=== PATIENT | male | born 1975 | race Caucasian/White ===

== ENCOUNTER 2023-05-20 19:52 | Inpatient (IN) | payer OTHER ==
[~2023-05-20] VITALS: Ht 182.9 cm; Wt 138.4 kg
[~2023-05-20 19:52] MED LIST: ALBU90OI INH; CLAR500 PO; CRUTCH3 USE; CYCL10 PO; GUAPHELA PO; HYDACE5 PO; IBUP800 PO; NAPR500 PO; OMEP20ER PO; OXYACE5T PO; PROCODE120 PO; RXERYTOPTH OP; TRAM50 PO
[2023-05-20 20:53] LABS: BASOPHILS ABSOLUTE AUTO 0.07 K/mm3 (0.00-0.23); BASOPHILS PERCENT AUTO 0 % (0-2); EOSINOPHILS ABSOLUTE AUTO 0.06 K/mm3 (0.00-0.68); EOSINOPHILS PERCENT AUTO 0 % (0-6); Hematocrit 28.2 % (37.0-53.0); IMMATURE GRAN PERCENT AUTO 1 % (0-1); LYMPHOCYTES ABSOLUTE AUTO 1.34 K/mm3 (0.84-5.20); LYMPHOCYTES PERCENT AUTO 7 % (21-46); MONOCYTES ABSOLUTE AUTO 2.26 K/mm3 (0.16-1.47); MONOCYTES PERCENT AUTO 11 % (4-13); Mean Corpuscular HGB 24.8 pg (26.0-34.0); Mean Corpuscular HGB Conc 31.9 g/dL (31.5-36.5); Mean Corpuscular Volume 78 fL (80-100); Mean Platelet Volume 9.4 fL (9.1-12.4); NEUTROPHILS ABSOLUTE AUTO 16.56 K/mm3 (1.96-9.15); NEUTROPHILS PERCENT AUTO 81 % (41-73); Platelet Count 441 K/mm3 (150-400); RDW Coefficient Variation 14.9 % (11.7-14.2); RDW Standard Deviation 42.4 fL (35.1-46.3); Red Blood Cell Count 3.63 M/mm3 (4.30-5.90); White Blood Cell Count 20.49 K/mm3 (4.00-11.30)
[2023-05-20 21:15] LABS: Albumin, Blood 1.9 g/dL (3.4-5.0); Albumin/Globulin Ratio 0.4 (0.8-1.8); Bilirubin, Total 0.5 mg/dL (0.1-1.0); Bun/Creatinine Ratio 14.6 (12.0-20.0); Calcium, Blood 8.4 mg/dL (8.5-10.1); Creatinine, Blood 1.51 mg/dL (0.60-1.20); Globulin, Blood 5.4 g/dL (2.2-4.0); Potassium, Blood 3.4 mmol/L (3.5-5.5); Total Protein, Blood 7.3 g/dL (6.4-8.2)
[2023-05-21] VITALS (9 sets, daily range): BP systolic 144–203; BP diastolic 79–117
[2023-05-21] MEDS ORDERED: NAPR500EC PO ×2 (00:57)
[2023-05-21 02:13] LABS: Source, Urine Clean Catch
[2023-05-21 02:17] LABS: Bilirubin, Urine Neg (Neg); Blood, Urine Neg (Neg); Glucose Qualitative, Urine Neg (Neg); Ketones, Urine Neg (Neg); Leukocyte Esterase, Urine Neg (Neg); Nitrite, Urine Neg (Neg); Protein, Urine 2+ (Neg); Urobilinogen, Urine 2+ (Normal)
[2023-05-21 02:35] LABS: Appearance, Urine Clear (Clear); Color, Urine Yellow (P-Yellow)
[2023-05-21 02:36] LABS: Amorphous Light (0-Heavy); Bacteria Rare /hpf; Red Blood Cells, Urine Not Seen /hpf (0-2); Squamous Epithelial Cells Few /hpf (Few); White Blood Cells, Urine 0-2 /hpf (0-5)
[2023-05-21 05:07] LABS: U Amphetamine Screen DETECTED; U Barbituate Screen Not Detected; U Methamphetamine Screen DETECTED
[2023-05-21 05:08] LABS: U Benzodiazapine Screen Not Detected; U Buprenorphine Screen Not Detected; U Cannabinoids Screen DETECTED; U Cocaine Screen Not Detected; U Methadone Screen Not Detected; U Opiates Screen Not Detected; U Oxycodone Screen Not Detected; U Phencyclidine Screen Not Detected; U Propoxyphene Screen Not Detected
--- NOTE | 2023-05-21 05:48 | NUR ---
T/F AND SUMMARY: REPORT RECIEVED FROM MAGGIE, RENAL NURSE AND PT T/F VIA GURNEY TO ROOM 363 AT 0030 W/DAUGHTER AT BEDSIDE. HE'S A/OX4, SPECIFIES NEEDS AND IS PLEASANT AND COOPERATIVE W/CARE. PT ORIENTED TO ROOM AND CALL SYSTEM AND IS AWARE OF LIMITATIONS. HE HAS GENERAL ANASARCA W/LIMITED ROM AND PAIN TO HANDS/BLE'S R/T EDEMA. POSSIBLE CELLULITIS NOTED TO RLE W/CALF, ROBERTSON AND ANKLE APPEARING SWOLLEN, RED, WARM AND TIGHT. EDEMA TO RLE > LLE BUT VENOUS DUPLEX WAS (-) FOR DVT. HE ALSO REPORTS R.SHOULDER PAIN W/DECREASED ROM. PT IS INDEPENDENT AT BASELINE BUT [place] [facility] [place] RES[place] OF PAIN AND MOBILITY ISSUES. URINAL USED AD CODIE W/UA OBTAINED AND SENT. URINE WAS CONCENTRATED AND ORANGE/PINK TINGED AND WAS (+) FOR PROTEIN/UROBILINOGEN BUT NO CX INDICATED. U.TOX (+) FOR METH/AMPHETAMINES AND CANNABINOIDS. HE HAD X1 BM THIS SHIFT THAT APPEARED MUCOUSY AND CREAM COLORED. MD NOTIFEID, NO NEW ORDERS. HE C/O GEN PAIN 05/16 W/FENTANYL IV PRN RX'D AND RECIEVED FOR /10 IMPROVEMENT. PT APPEARED ANXIOUS AND TACHYPNEA MOST OF NOCTE, RX'D ATIVAN 0.5MG PO X1 FOR MILD RELIEF. RR REMAINED ELEVATED DESPITE NO OTHER S/S RESP DISTRESS AND SPO2 >98%. CPAP COMMENCED BUT PT COULDN'T TOLERATE IT. HE'S ALSO BEEN S.TACH ON TELE SINCE ER W/HR SUSTAINING 120'S BPM. NOTIFIED AND NO NEW ORDERS RECIEVED. NS IS INFUSING AT 75 ML/HR, ALBUMIN AND IV CEFTRIAXONE WERE COMPLETED AND 40 MEQ PO KCL GIVEN FOR K+ 3.4. AM LABS PENDING AND ECHO PLANNED THIS AM. NO ACUTE CHANGES. WCTM AND REPORT TO DAY RN.
[2023-05-21 05:52] LABS: BASOPHILS ABSOLUTE AUTO 0.07 K/mm3 (0.00-0.23); BASOPHILS PERCENT AUTO 0 % (0-2); EOSINOPHILS ABSOLUTE AUTO 0.05 K/mm3 (0.00-0.68); EOSINOPHILS PERCENT AUTO 0 % (0-6); Hematocrit 25.9 % (37.0-53.0); Hemoglobin 8.1 g/dL (13.5-17.5); IMMATURE GRAN PERCENT AUTO 1 % (0-1); LYMPHOCYTES PERCENT AUTO 6 % (21-46); MONOCYTES ABSOLUTE AUTO 1.83 K/mm3 (0.16-1.47); MONOCYTES PERCENT AUTO 9 % (4-13); Mean Corpuscular HGB 24.4 pg (26.0-34.0); Mean Corpuscular HGB Conc 31.3 g/dL (31.5-36.5); Mean Corpuscular Volume 78 fL (80-100); Mean Platelet Volume 9.6 fL (9.1-12.4); NEUTROPHILS ABSOLUTE AUTO 16.34 K/mm3 (1.96-9.15); NEUTROPHILS PERCENT AUTO 83 % (41-73); Platelet Count 396 K/mm3 (150-400); RDW Coefficient Variation 15.3 % (11.7-14.2); RDW Standard Deviation 43.5 fL (35.1-46.3); Red Blood Cell Count 3.32 M/mm3 (4.30-5.90); White Blood Cell Count 19.69 K/mm3 (4.00-11.30)
[2023-05-21 06:32] LABS: Albumin/Globulin Ratio 0.4 (0.8-1.8); Bilirubin, Total 0.5 mg/dL (0.1-1.0); Bun/Creatinine Ratio 16.7 (12.0-20.0); Creatinine, Blood 1.2 mg/dL (0.60-1.20); Globulin, Blood 4.6 g/dL (2.2-4.0); Potassium, Blood 3.4 mmol/L (3.5-5.5); Total Protein, Blood 6.6 g/dL (6.4-8.2)
--- NOTE | 2023-05-21 19:34 | NUR ---
SHIFT SUMMARY PT A&OX4 AND COOPERATIVE OF CARE. PT ON TELE AND HR REMAINS TACHY IN THE 120'S T/O DAY. BP ELEVATED AND DR CHRISTIANSON NOTIFIED. PRN MEDICATIONS ORDERED. HYDROLOZINE GIVEN IN AFTERNOON WITH GOOD EFFECT BUT BP WAS AGAIN ELEVATED IN EVENING. MEDICATED PER EMAR. PT VERBALIZED FEELING ANXIOUS AND HAVING PANIC ATTACKS SINCE BEING IN THE HOSPITAL. ATIVAN GIVEN AND THIS NURSE SAT WITH PT FOR A TIME. PT ALSO C/O PAIN AND MEDICATED WITH GOOD EFFECT. PT VERY SOMNOLENT IN AFTERNOON AND DIFFICULT TO WAKE FOR EVENING MEDS. ONCE AWAKE PT WAS ABLE TO SIT UP AND EAT DINNER. PT IS GETTING DIURESED AND VERBALIZED CONCERN THAT HE WAS NOT ABLE TO REST D/T FREQUENT URINATION. CONDOM CATH PLACED. PT APPEARS TO HOLD BREATH WHILE SLEEPING AND DESATS TO THE LOW 80'S. OXYGEN COMES BACK UP QUICK WHEN PT TAKES BREATH. PT ENCOURAGED TO TRY CPAP BUT PT DECLINED. PT WILLING TO USE NC WHILE SLEEPING. REPORT GIVEN TO LITERACY CONSULTANT NURSE. BED IN LOWEST POSITION AND CALL LIGHT IN REACH.
[2023-05-22 04:25] VITALS: BP 150/91
[2023-05-22 05:09] LABS: BASOPHILS ABSOLUTE AUTO 0.07 K/mm3 (0.00-0.23); BASOPHILS PERCENT AUTO 0 % (0-2); EOSINOPHILS ABSOLUTE AUTO 0.32 K/mm3 (0.00-0.68); EOSINOPHILS PERCENT AUTO 2 % (0-6); Hematocrit 27.9 % (37.0-53.0); Hemoglobin 8.9 g/dL (13.5-17.5); IMMATURE GRAN ABSOLUTE AUTO 0.19 K/mm3 (0.00-0.10); IMMATURE GRAN PERCENT AUTO 1 % (0-1); LYMPHOCYTES ABSOLUTE AUTO 1.01 K/mm3 (0.84-5.20); LYMPHOCYTES PERCENT AUTO 5 % (21-46); MONOCYTES ABSOLUTE AUTO 1.54 K/mm3 (0.16-1.47); MONOCYTES PERCENT AUTO 8 % (4-13); Mean Corpuscular HGB 24.7 pg (26.0-34.0); Mean Corpuscular HGB Conc 31.9 g/dL (31.5-36.5); Mean Corpuscular Volume 77 fL (80-100); Mean Platelet Volume 10.1 fL (9.1-12.4); NEUTROPHILS ABSOLUTE AUTO 16.53 K/mm3 (1.96-9.15); NEUTROPHILS PERCENT AUTO 84 % (41-73); Platelet Count 436 K/mm3 (150-400); RDW Coefficient Variation 15.4 % (11.7-14.2); RDW Standard Deviation 42.8 fL (35.1-46.3); Red Blood Cell Count 3.61 M/mm3 (4.30-5.90); White Blood Cell Count 19.66 K/mm3 (4.00-11.30)
--- NOTE | 2023-05-22 05:52 | NUR ---
SHIFT SUMMARY PRN HYDRALAZINE GIVEN X1 AT BEGINNING OF SHIFT FOR ELEVATED SBP, WITH POSITIVE RESULTS. PT DID NOT REQUIRE ANY ADDITIONAL PRNS FOR BP THE REMAINDER OF SHIFT. PRN OXYCODONE GIVEN X1 FOR PAIN WITH POSITIVE EFFECT. Q1H FIRE SAFETY CHECKS COMPLETED WITH NO IGNITION SOURCES FOUND.
[2023-05-22 06:11] LABS: Albumin, Blood 1.8 g/dL (3.4-5.0); Albumin/Globulin Ratio 0.4 (0.8-1.8); Bilirubin, Total 0.4 mg/dL (0.1-1.0); Bun/Creatinine Ratio 17.5 (12.0-20.0); Calcium, Blood 8.1 mg/dL (8.5-10.1); Creatinine, Blood 1.03 mg/dL (0.60-1.20); Globulin, Blood 5.1 g/dL (2.2-4.0); Magnesium, Blood 1.7 mg/dL (1.6-2.4); Percent Saturation 6.9 % (20.0-50.0); Potassium, Blood 3.5 mmol/L (3.5-5.5); Total Protein, Blood 6.9 g/dL (6.4-8.2)
[2023-05-22 07:55] VITALS: BP 164/91
[2023-05-22 15:48] VITALS: BP 164/93
--- NOTE | 2023-05-22 17:36 | NUR ---
Pt resting in bed upon arrival. Offered [facility] supportive visit. Brief discussion regarding news received regarding potential cancer. Pt tearful and reports trying to process information. Pt reports not but has 2 daughter and a son. Kept visit brief as Pt is also painful. He reports 9/10 pain in his right shoulder when he moves it. Pt agreeable for this PC RN to F/U tomorrow. Spoke with Primary RN Faustina and reported Pt's pain. Palliative Care will remain available
--- NOTE | 2023-05-22 18:24 | NUR ---
SHIFT SUMMARY PT UP IN RECLINER DURING THE DAY SAYING ITS MORE COMFORTABLE THEN THE BED. STATES ITS HARD TO MOVE AND REPOSITION IN BED. 2 PERSON ASSIST TO STAND FROM RECLINER. REPORTED PAIN THIS EVENING TO PALLIATIVE CARE RN. SPECIFICALLY R SHOULDER. HAS KEPT LE'S ELEVATED WHILE IN RECLINER. RESP DEEP AND RAPID WITH ANY MOVEMENT BUT DENIES ANY RESP DISTRESS. MD NOTIFIED PT OF METS CANCER THIS EVENING. FAMILY AT BEDSIDE DURING SUPPER. USING CONDOM CATH FOR COMFORT DUE TO DIFFICULTY WITH USING URINAL AND GETTING UP.
[2023-05-22 19:46] VITALS: BP 146/100
[2023-05-23 04:26] VITALS: BP 162/84
[2023-05-23 05:21] LABS: Hematocrit 28.5 % (37.0-53.0); Mean Corpuscular HGB 24.4 pg (26.0-34.0); Mean Corpuscular HGB Conc 31.6 g/dL (31.5-36.5); Mean Corpuscular Volume 77 fL (80-100); Mean Platelet Volume 10.3 fL (9.1-12.4); Platelet Count 472 K/mm3 (150-400); RDW Coefficient Variation 15.3 % (11.7-14.2); RDW Standard Deviation 42.7 fL (35.1-46.3); Red Blood Cell Count 3.69 M/mm3 (4.30-5.90); White Blood Cell Count 19.52 K/mm3 (4.00-11.30)
[2023-05-23 05:27] VITALS: BP 203/106
[2023-05-23 05:32] LABS: International Normalized Ratio 1.12; Prothrombin Time Results 11.7 Sec (9.7-11.5)
[2023-05-23 05:51] LABS: Albumin, Blood 1.8 g/dL (3.4-5.0); Albumin/Globulin Ratio 0.3 (0.8-1.8); Bilirubin, Total 0.4 mg/dL (0.1-1.0); Bun/Creatinine Ratio 18.4 (12.0-20.0); Calcium, Blood 8.3 mg/dL (8.5-10.1); Creatinine, Blood 1.03 mg/dL (0.60-1.20); Globulin, Blood 5.2 g/dL (2.2-4.0); Potassium, Blood 3.3 mmol/L (3.5-5.5)
--- NOTE | 2023-05-23 06:31 | NUR ---
SHIFT SUMMARY. SBP NOT REQUIRING PRNS OVERNIGHT. PT REQUESTED MEDICATION FOR ANXIETY X1 WITH POSITIVE EFFECT. ASSOCIATE DIRECTOR REGULATORY AFFAIRS WOULD CALL THAT PTS HEART RATE WOULD GO UP TO 180'S, THIS WOULD ONLY OCCUR WHEN PTS CONDOM CATH FELL OFF AND WOULD RESOLVE IN A FEW SECONDS. Q1H FIRE SAFETY CHECKS COMPLETED, NO IGNITION SOURCES FOUND
[2023-05-23 07:45] VITALS: BP 144/93
[2023-05-23 15:43] VITALS: BP 171/96
--- NOTE | 2023-05-23 18:17 | NUR ---
shift summary pt up to commode several times today with small amounts of liquid stool. no mucus in it at this time. notified both dr. Echeverria and Dr. Tolentino that CT guided liver biopsy is only done as out pt unless one of them speaks with raidologist. Dr. Echeverria requesting per Dr. Tolentino for surgery to place mediport prior to pts discharge for future chemo treatments. pt continues with edema to legs/feet and hands. able to make a better fist than yesterday. His feet have some wrinkles showing some loss of swelling. states he feels he can move around better than yesterday. resp still rapid with any movement as well as heart rate up to 150 with getting up to commode.
[2023-05-23 20:32] VITALS: BP 144/78
[2023-05-24] VITALS (17 sets, daily range): BP systolic 115–161; BP diastolic 54–97
--- NOTE | 2023-05-24 03:13 | NUR ---
REPORT RECIEVED AND VERIFIED PT AXO IN A LOT OF PAIN VERY UNCOMFORTABLE. I MEDICATED PT WHICH HELPED WITH HIS FREQUENT VISITS TO USE THE BATHROOM. PT IS AWARE OF NPO STATUS AFTER MIDNIGHT FOR POSSIBLE PROCEDURE. OVER ALL PT SEEMS DISTRESSED WITH HIS NEW DIAGNOSIS OF A COLON CARCINOMA AND POSSIBLE METS. PT WANTS TO GO HOME BUT IS HARDLY ABLE TO CARE FORSELF HERE, WILL CONT TO MONITOR.
--- NOTE | 2023-05-24 14:43 | NUR ---
PT BROUGHT FROM FLOOR TO DAY SURGERY FOR PROCEDURE.
--- NOTE | 2023-05-24 14:44 | NUR ---
PT HAS 20G IV TO RIGHT AC THAT FLUSHES WELL AND FLOWS TO GRAVITY.
--- NOTE | 2023-05-24 17:41 | NUR ---
SHIFT SUMMARY NPO MOST OF SHIFT FOR PORT PLACEMENT. C/O PAIN AND STIFFNESS R/T FLUID OVERLOAD. SET TO RETURN TO FLOOR FROM PACU. WILL CONTINUE TO MONITOR
[2023-05-25 03:40] VITALS: BP 140/91
--- NOTE | 2023-05-25 03:40 | NUR ---
REPORT RECIEVED PT MUCH BETTER TODAY AFTER MEDIPOTY PLACED, STATES HIS ANXIETY IS WAS DOWN SINCE AFTER PROCEDURE. WAS STARTED ON BETA ALFREDO TODAY SO WILL MONITOR HR THIS EVENING. MINIMAL PAIN AND LITTLE DISTRESS.
[2023-05-25 05:52] LABS: Bun/Creatinine Ratio 24.5 (12.0-20.0); Calcium, Blood 8.1 mg/dL (8.5-10.1); Creatinine, Blood 1.06 mg/dL (0.60-1.20); Potassium, Blood 3.5 mmol/L (3.5-5.5)
--- NOTE | 2023-05-25 06:06 | NUR ---
SHIFT SUMMARY PT DID VERY WELL AFTER MEDIPORT PLACEMENT AND STATES HIS ANXIETY IS GONE FOR NOW. PT STILL NEEDED TO GET OOB TO BATHROOM EVERY 2 HOURS BUT IS GROWING STRONGER . STOOL GOING FROM BROWN ORAGNE TO RED BY END OF SHIFT MUCUSY FOR THE MOST PART, MINIMAL PAIN THIS EVENING. MEDIPORT SITE LOOKS GOOD TO SMALL INCISIONS WITH SUTURES, NO BLEEDING.
--- NOTE | 2023-05-25 06:25 | NUR ---
PT HAS SMALL ABOUT BLOOD IN DIAPER PROBABLY CAUSE BY A COMBO OF FREQUENCY GOING AND RECTAL MASS. WILL REPORT TO ONCOMEING SHIFT
[2023-05-25 08:04] VITALS: BP 127/101
[2023-05-25] MEDS ORDERED: LORA.5 PO ×2 (10:31)
[2023-05-25] MEDS ORDERED: METO50ER PO ×2 (10:32)
[2023-05-25] MEDS ORDERED: OXAYDO5 M1 PO ×2 (10:33)
[2023-05-25] MEDS ORDERED: FURO40 PO ×2 (10:34)
[2023-05-25] MEDS ORDERED: DOCU100 PO ×2 (10:34)
[2023-05-25] MEDS ORDERED: POTCHL20ER PO ×2 (10:35)
[2023-05-25] MEDS ORDERED: SENN187 PO ×2 (10:36)
--- NOTE | 2023-05-25 13:14 | NUR ---
DISCHARGE SUMMARY PATIENT DISCHARGED THIS SHIFT VIA WHEELCHAIR WITH DAUGHTER TO DRIVE HOME. DISCHARGE PACKET WAS GIVEN WITH QUESTIONS ANSWERED. [facility]. FOLLOW UP NUMBER FOR [facility]IENT SCHEDULING WRITTEN ON PACKET. IV DISCONTIUED PRIOR TO DISCHARGE.
== END 2023-05-25 11:54 | disposition home or self-care (01) | DRG 375 ==
LOC: ER 19:52 → MEDS 05-21 00:24
PROVIDERS: Emergency Medicine; Internal Medicine; Surgery; ADMIT Internal Medicine
PROC: 02HV33Z Insertion of Infusion Device into Superior Vena Cava, Percutaneous Approach (ICD-10-PCS; 2023-05-24)
PROC: B5181ZA Fluoroscopy of Superior Vena Cava using Low Osmolar Contrast, Guidance (ICD-10-PCS; 2023-05-24)
PROC: 0JH63XZ Insertion of Tunneled Vascular Access Device into Chest Subcutaneous Tissue and Fascia, Percutaneous Approach (ICD-10-PCS; principal; 2023-05-24 15:30)
DX: C20 Malignant neoplasm of rectum (principal); C77.9 Secondary and unspecified malignant neoplasm of lymph node, unspecified; C78.7 Secondary malignant neoplasm of liver and intrahepatic bile duct; L03.116 Cellulitis of left lower limb; L03.115 Cellulitis of right lower limb; D63.0 Anemia in neoplastic disease; D50.9 Iron deficiency anemia, unspecified; I10 Essential (primary) hypertension; F17.210 Nicotine dependence, cigarettes, uncomplicated; E88.09 Other disorders of plasma-protein metabolism, not elsewhere classified; E87.6 Hypokalemia; K76.0 Fatty (change of) liver, not elsewhere classified; F41.9 Anxiety disorder, unspecified; F15.90 Other stimulant use, unspecified, uncomplicated; F12.90 Cannabis use, unspecified, uncomplicated; Z79.899 Other long term (current) drug therapy; Z79.891 Long term (current) use of opiate analgesic
CPT/HCPCS: 36415; 71045; 74178; 76770; 77001; 80048; 80053; 81001; 82728; 83540; 83550; 83605; 83690; 83735; 83880; 84484; 85025; 85027; 85610; 93005; 93010; 93306; 93970; 94660; 94762; 96365; 96375; 99285-25; A9270; C1788; J0360; J0690; J0696; J1100; J1642; J1650; J1940; J2250; J2405; J2704; J2916; J3010; J7030; J7120; P9047; Q9967

== ENCOUNTER → 2023-05-29 | Outpatient (CLI) | payer OTHER ==
[~2023-05-29] MED LIST changes: +DOCU100 PO; +FURO40 PO; +LORA.5 PO; +METO50ER PO; +NAPR500EC PO; +OXAYDO5 M1 PO; +POTCHL20ER PO; +SENN187 PO
[2023-05-29 21:01] LABS: Calcium, Blood 8.4 mg/dL (8.5-10.1); Creatinine, Blood 1.35 mg/dL (0.60-1.20); Potassium, Blood 3.2 mmol/L (3.5-5.5); Thyroid Stimulating Hormone 1.82 uIU/mL (0.360-4.800)
== END ==
LOC: LAB SHORT 16:45 → LAB 16:45
PROVIDERS: Family Medicine
DX: M79.89 Other specified soft tissue disorders (principal); R00.0 Tachycardia, unspecified
CPT/HCPCS: 80048; 84443

== ENCOUNTER 2023-06-20 16:45 | Day surgery (SDC) | payer OTHER ==
[2023-06-20 17:18] VITALS: BP 146/94
[2023-06-20] MEDS ORDERED: SPIRONOLACTONE25 MG PO (18:44)
== END 2023-06-20 19:28 | disposition home or self-care (01) ==
LOC: ATC 16:45
DX: E87.6 Hypokalemia (principal); F17.210 Nicotine dependence, cigarettes, uncomplicated; Z79.899 Other long term (current) drug therapy
CPT/HCPCS: 36415; 80048; 96365; 96366; 99282; J1642; J3480

== ENCOUNTER 2023-06-21 08:39 | Day surgery (SDC) | payer OTHER ==
[~2023-06-21 08:39] MED LIST changes: +SPIRONOLACTONE25 MG PO
[2023-06-21 15:40] VITALS: BP 159/87
== END 2023-06-21 17:47 | disposition home or self-care (01) ==
LOC: ATC 08:39
DX: E87.6 Hypokalemia (principal); E88.09 Other disorders of plasma-protein metabolism, not elsewhere classified
CPT/HCPCS: 96365; 96366; J1642; J3480

== ENCOUNTER → 2023-07-08 | Outpatient (CLI) | payer OTHER ==
[2023-07-08 12:01] LABS: Bun/Creatinine Ratio 14.4 (12.0-20.0); Calcium, Blood 8.2 mg/dL (8.5-10.1); Creatinine, Blood 0.97 mg/dL (0.60-1.20); Potassium, Blood 3.6 mmol/L (3.5-5.5)
== END ==
LOC: LAB 11:12 → LAB SHORT 11:12
PROVIDERS: Family Medicine
DX: M79.89 Other specified soft tissue disorders (principal)
CPT/HCPCS: 80048

== ENCOUNTER 2023-07-22 18:35 | Inpatient (IN) | payer OTHER ==
[~2023-07-22] VITALS: Ht 180.3 cm; Wt 113.4 kg
[2023-07-22 19:04] LABS: BASOPHILS ABSOLUTE AUTO 0.03 K/mm3 (0.00-0.23); BASOPHILS PERCENT AUTO 0 % (0-2); EOSINOPHILS ABSOLUTE AUTO 0.04 K/mm3 (0.00-0.68); EOSINOPHILS PERCENT AUTO 0 % (0-6); Hematocrit 24.9 % (37.0-53.0); Hemoglobin 7.7 g/dL (13.5-17.5); IMMATURE GRAN ABSOLUTE AUTO 0.18 K/mm3 (0.00-0.10); IMMATURE GRAN PERCENT AUTO 1 % (0-1); LYMPHOCYTES ABSOLUTE AUTO 0.96 K/mm3 (0.84-5.20); LYMPHOCYTES PERCENT AUTO 5 % (21-46); MONOCYTES ABSOLUTE AUTO 1.03 K/mm3 (0.16-1.47); MONOCYTES PERCENT AUTO 6 % (4-13); Mean Corpuscular HGB Conc 30.9 g/dL (31.5-36.5); Mean Corpuscular Volume 81 fL (80-100); Mean Platelet Volume 9.7 fL (9.1-12.4); NEUTROPHILS ABSOLUTE AUTO 16.22 K/mm3 (1.96-9.15); NEUTROPHILS PERCENT AUTO 88 % (41-73); Platelet Count 423 K/mm3 (150-400); RDW Coefficient Variation 23.4 % (11.7-14.2); Red Blood Cell Count 3.08 M/mm3 (4.30-5.90); White Blood Cell Count 18.46 K/mm3 (4.00-11.30)
[2023-07-22 19:24] LABS: Albumin, Blood 1.6 g/dL (3.4-5.0); Albumin/Globulin Ratio 0.3 (0.8-1.8); Creatinine, Blood 0.78 mg/dL (0.60-1.20); Globulin, Blood 5.5 g/dL (2.2-4.0); Potassium, Blood 4.8 mmol/L (3.5-5.5); Total Protein, Blood 7.1 g/dL (6.4-8.2)
[2023-07-22] MEDS ORDERED: LOPE2C PO (20:26)
[2023-07-23] VITALS (9 sets, daily range): BP systolic 122–141; BP diastolic 74–103
[2023-07-23 03:14] LABS: Hematocrit 22.6 % (37.0-53.0); Hemoglobin 6.8 g/dL (13.5-17.5); Mean Corpuscular HGB 24.6 pg (26.0-34.0); Mean Corpuscular HGB Conc 30.1 g/dL (31.5-36.5); Mean Corpuscular Volume 82 fL (80-100); Mean Platelet Volume 8.7 fL (9.1-12.4); Platelet Count 314 K/mm3 (150-400); RDW Coefficient Variation 22.8 % (11.7-14.2); RDW Standard Deviation 66.6 fL (35.1-46.3); Red Blood Cell Count 2.76 M/mm3 (4.30-5.90); White Blood Cell Count 18.04 K/mm3 (4.00-11.30)
[2023-07-23 03:33] LABS: Albumin, Blood 1.5 g/dL (3.4-5.0); Albumin/Globulin Ratio 0.3 (0.8-1.8); Bilirubin, Total 1.2 mg/dL (0.1-1.0); Bun/Creatinine Ratio 17.1 (12.0-20.0); Calcium, Blood 7.6 mg/dL (8.5-10.1); Creatinine, Blood 0.93 mg/dL (0.60-1.20); Globulin, Blood 4.9 g/dL (2.2-4.0); Potassium, Blood 3.9 mmol/L (3.5-5.5); Total Protein, Blood 6.4 g/dL (6.4-8.2)
[2023-07-23 03:34] LABS: BAND PERCENT MAN 4 % (0-8); BASOPHILS PERCENT MAN 0 % (0-2); EOSINOPHILS PERCENT MAN 0 % (0-6); LYMPHOCYTES ABSOLUTE MAN 0.54 K/mm3 (0.84-5.20); LYMPHOCYTES PERCENT MAN 3 % (21-46); MONOCYTES ABSOLUTE MAN 0.72 K/mm3 (0.16-1.47); MONOCYTES PERCENT MAN 4 % (4-13); NEUTROPHILS ABSOLUTE MAN 16.77 K/mm3 (1.96-9.15); SEG NEUTROPHILS PERCENT MAN 89 % (41-73); TOTAL CELLS COUNTED 100
--- NOTE | 2023-07-23 04:16 | NUR ---
END OF SHIFT: PATIENT IS ALERT AND ORIENTED PAIN IS NOW CONTROLLED WITH 1MG OF DILAUDED , INFUSING NS AT 150. RECIEVED 1 LITER IN THE ED AND FLAGYL WITH RAYNE, MAGDIEL HAS BEEN SINUS TACH SINCE ARRIVAL. 140'S BUT IS NOW 120'S, NO LONGER FEBRILE. VERY VERY SMALL BM 2-3L VIA NC FOR COMFORT, HELPS WITH ANXIETY. PATIENT IS PLEASANT COOPERATIVE WITH CARE, PALLIATIVE CARE CONSULT PLACED, ALLEGEDLY HE WAS SUPPOSE TO HAVE A DIAGNOSTIC COLONOSCOPY WITH DR. CAMARENA, THIS COMING WEEK TO DO BIOPSIES, HOWEVER, NO CONSULT I SEE IN THE SYSTEM. PATIENT SEEMS TO BE RESPONDING TO FLUIDS MILDLY.
[2023-07-23 11:02] LABS: Percent Saturation 12.9 % (20.0-50.0)
[2023-07-23] MEDS ORDERED: LORA.5 PO (13:03)
[2023-07-23 13:26] LABS: Hematocrit 25.6 % (37.0-53.0); Hemoglobin 7.9 g/dL (13.5-17.5)
--- NOTE | 2023-07-23 15:38 | NUR ---
SHIFT SUMMARY: PT HAS BEEN A&Ox4, COOPERATIVE W/CARE AND ABLE TO MAKE NEEDS KNOWN, REPORTS FEELING SLIGHTLY ANXIOUS BUT DENIES NEED FOR PRN MEDICATION. PT DYSPNEIC W/ACTIVITY, O2 SATS MAINTAINED >93% ON RA UP TO 2 L/MIN NC. SIN TACH ON MONITOR W/RATE 110s-120s, PT DENIES CP. PT CONTINUES NPO, PENDING PLAN OF CARE, ICE CHIPS PROVIDED. PT HAS BEEN SBA TO BSC, MULTIPLE SMALL BMs T/OUT THE DAY. PAIN TO RLQ CONTINUES, PT MEDICATED W/PRN MEDICATION. ONE UNIT PRBCs INFUSED PER ORDERS, PT TOLERATES WELL. FLUIDS INFUSING PER ORDERS. AT THIS TIME, PT IS RESTING QUIETLY IN BED W/CALL LIGHT IN REACH. REPORT HAS BEEN GIVEN TO TONY GONZÁLES.
[2023-07-24] VITALS (17 sets, daily range): BP systolic 117–141; BP diastolic 71–102
[2023-07-24 03:54] LABS: Hematocrit 22.9 % (37.0-53.0); Hemoglobin 7.1 g/dL (13.5-17.5); Mean Corpuscular HGB 25.3 pg (26.0-34.0); Mean Corpuscular Volume 82 fL (80-100); Mean Platelet Volume 9.1 fL (9.1-12.4); NRBC ABSOLUTE 0.03 K/mm3 (0.00-0.02); NRBC Auto 0.1 /100 WBC (0.0-0.2); Platelet Count 367 K/mm3 (150-400); RDW Coefficient Variation 21.7 % (11.7-14.2); RDW Standard Deviation 63.1 fL (35.1-46.3); Red Blood Cell Count 2.81 M/mm3 (4.30-5.90); White Blood Cell Count 21.48 K/mm3 (4.00-11.30)
[2023-07-24 04:25] LABS: Albumin, Blood 1.6 g/dL (3.4-5.0); Albumin/Globulin Ratio 0.3 (0.8-1.8); Bilirubin, Total 1.2 mg/dL (0.1-1.0); Bun/Creatinine Ratio 21.3 (12.0-20.0); Creatinine, Blood 0.89 mg/dL (0.60-1.20); Potassium, Blood 4.4 mmol/L (3.5-5.5); Total Protein, Blood 6.6 g/dL (6.4-8.2)
--- NOTE | 2023-07-24 06:08 | NUR ---
AOX4. ST WITH STABLE BP. ROOM AIR WHEN AWAKE, 2L NC WHILE SLEEPING. PATIENT HAVING LOOSE BOWEL MOVEMENTS. NPO SINCE 0600. FLUIDS DISCONTINUED OVERNIGHT D/T WORSENING BLE EDEMA.
[2023-07-24 11:09] LABS: Stool Occult Blood Guaiac 1 Pos (Neg)
[2023-07-24 11:38] LABS: Adenovirus F 40/41 Not Detected (NOT DETECT); Astrovirus Not Detected (NOT DETECT); Campylobacter Sp Not Detected (NOT DETECT); Cryptosporidium Not Detected (NOT DETECT); Cyclospora Cayetanensis Not Detected (NOT DETECT); E. Coli O157 Not Detected (NOT DETECT); Entamoeba Histolytica Not Detected (NOT DETECT); Enteroaggregative E. coli-EAEC Not Detected (NOT DETECT); Enteropathogenic E. coli-EPEC Detected (NOT DETECT); Enterotoxigenic E. coli-ETEC Not Detected (NOT DETECT); Giardia Lamblia Not Detected (NOT DETECT); Norovirus GI/GII Not Detected (NOT DETECT); Plesiomonas Shigelloides Not Detected (NOT DETECT); Rotavirus A Not Detected (NOT DETECT); Salmonella Sp Not Detected (NOT DETECT); Sapovirus Not Detected (NOT DETECT); Shiga Toxin-prod E. coli-STEC Not Detected (NOT DETECT); Shigella/Enteroin E. coli-EIEC Not Detected (NOT DETECT); Vibrio Cholerae Not Detected (NOT DETECT); Vibrio Sp Not Detected (NOT DETECT); Yersinia Enterocolitica Not Detected (NOT DETECT)
--- NOTE | 2023-07-24 13:05 | NUR ---
AM NOTE: PT HAS BEEN A&Ox4, ANSWERING QUESTIONS APPROPRIATELY AND COOPERATIVE W/CARE. PAIN TO RLQ CONTINUES, RESPONDS WELL TO PRN PAIN MEDICATION, SEE EMAR. PT IS DYSPNEIC W/EXERTION OR SPEAKING IN LONG SENTENCES, O2 SATS >93% ON RA. SIN TACH ON MONITOR W/RATE 110s, PT DENIES CP. EDEMA TO BLE, DIURETIC ADMINISTERED THIS AM. PT CONTINUES TO BE SBA TO BS, HAVING FREQUENT SMALL LOOSE STOOLS, SAMPLE COLLECTED AND SENT TO LAB. PT TO SURGERY FOR PROCEDURE AT APPROX 1055 THIS AM, CONTINUES THERE AT THIS TIME.
--- NOTE | 2023-07-24 15:14 | NUR ---
SURGERY: PT CONTINUES IN SURGERY AT THIS TIME.
[2023-07-24 16:47] LABS: IMMATURE RETIC FRACTION 32.2 % (2.3-16.0); RETIC HGB EQUIVALENT 23.9 pg (28.20-36.60); RETICULOCYTE ABSOLUTE 0.0778 M/mm3 (0.0200-0.1100); RETICULOCYTE COUNT PERCENT 2.55 % (0.50-2.50)
[2023-07-24 17:00] LABS: Hematocrit 25.4 % (37.0-53.0); Hemoglobin 7.7 g/dL (13.5-17.5)
--- NOTE | 2023-07-24 18:31 | NUR ---
Assumed care of patient at approx 1530. Pt back from surgery at approx 1630, has colostomy to left abd, briseyda drain to right side and 3 incision noted. Vss. No other acute changes noted. Will continue to monitor.
[2023-07-25] VITALS (7 sets, daily range): BP systolic 116–150; BP diastolic 74–107
[2023-07-25 04:26] LABS: Hematocrit 26.2 % (37.0-53.0); Hemoglobin 7.8 g/dL (13.5-17.5); Mean Corpuscular HGB Conc 29.8 g/dL (31.5-36.5); Mean Corpuscular Volume 84 fL (80-100); Mean Platelet Volume 9.1 fL (9.1-12.4); NRBC ABSOLUTE 0.04 K/mm3 (0.00-0.02); NRBC Auto 0.2 /100 WBC (0.0-0.2); Platelet Count 424 K/mm3 (150-400); RDW Standard Deviation 65.6 fL (35.1-46.3); Red Blood Cell Count 3.12 M/mm3 (4.30-5.90)
[2023-07-25 04:45] LABS: Bun/Creatinine Ratio 21.2 (12.0-20.0); Calcium, Blood 7.6 mg/dL (8.5-10.1); Creatinine, Blood 1.04 mg/dL (0.60-1.20); Potassium, Blood 4.7 mmol/L (3.5-5.5)
--- NOTE | 2023-07-25 05:09 | NUR ---
SHIFT SUMMARY ASSUMED CARE OF PT AT 1900. PT IS A/OX4. HEART SOUNDS REGULAR. LUNG SOUNDS HAVE CRACKLES IN BASES. PT STATES CURRENT EVERY DAY 1/2 PACK SMOKER. PT WILL ING TO QUIT FOR WOUND HEALING. PT HAD LLQ PAIN AT OSTOMY SITE, MEDICATED PER EMAR. OSTOMY DRAINING BLOOD BROWN LIQUID WITH SMALL OUTPUT. PT ADVANCING DIET TOLERATED AND EATING PUDDING AND DRINKING JUICE. PT USED BSC TO URINATE. PT A 1P SBA WITH CORDS. PT FELT WEAK AFTER EVENTS OF THE DAY. JEROME DRAIN DRAINING RED FLUIDS WITH SOME CLOTS. SOME DRAINAGE AROUND SITE. DRESSING CHANGED. PT ASKING ABOUT GETTING EDUCATION FOR OSTOMY SITE AND WHEN HE WILL POSSIBLY BE DISCHARGED.
[2023-07-25 05:23] LABS: BAND PERCENT MAN 2 % (0-8); BASOPHILS PERCENT MAN 0 % (0-2); EOSINOPHILS PERCENT MAN 0 % (0-6); LYMPHOCYTES ABSOLUTE MAN 0.69 K/mm3 (0.84-5.20); LYMPHOCYTES PERCENT MAN 3 % (21-46); MONOCYTES ABSOLUTE MAN 0.23 K/mm3 (0.16-1.47); MONOCYTES PERCENT MAN 1 % (4-13); NEUTROPHILS ABSOLUTE MAN 22.17 K/mm3 (1.96-9.15); SEG NEUTROPHILS PERCENT MAN 94 % (41-73); TOTAL CELLS COUNTED 100
--- NOTE | 2023-07-25 13:51 | NUR ---
Met with pt yesterday at bedside prior to his colostomy placement. Prior to the surgery, he stated he was really nervous, stated his anxiety was at 9/10 and began crying. He stated he was trying "not to hyperventilate" prior to surgery. He understood the surgery was necessary, and now that it's done, he states he's feeling relieved, even though they weren't able to excise the tumor. He is also positive for mets to liver and lymph nodes. It's unclear to me if the patient is understanding the gravity of his situation, but will continue with supportive visits.
--- NOTE | 2023-07-25 15:25 | NUR ---
PHYSICIAN CONTACT THIS RN CALLED TO PT'S ROOM FOR CONCERNS OF ABDOMINAL DISTENTION. PT STATES "IT FEELS LIKE IT'S GOING TO EXPLODE" AND "THERE'S NO MORE ROOM FOR ANYTHING TO GO." PT IS TEARFUL AND STATES THAT HE IS "WORRIED SOMETHING IS WRONG." BOWEL SOUNDS PRESENT, TENDER ON PALPATION. DISTENTION NOTED, NOT REMARKABLY CHANGED FROM AM ASSESSMENT. CALL PLACED TO MD; MD WILL COME TO BEDSIDE TO ASSESS.
--- NOTE | 2023-07-25 16:48 | NUR ---
END OF SHIFT NOTE: PT ALERT AND ORIENTED X4, ANXIOUS AT TIMES. ABLE TO CALL APPROPRIATELY AND MAKE NEEDS KNOWN TO STAFF. HR 90-100'S, NSR. SBP 120-140'S, DENIES CHEST PAIN/PRESSURE. SPO2 >95% ON RA, DENIES SOB. PT REPORTS ABDOMINAL PAIN AND DISTENTION, SEE PREVIOUS NOTE. MD MEIER TO BEDSIDE, ORDERS RECEIVED TO ORDER LIQUID DIET AND CONTINUE PAIN MANAGEMENT PER EMAR. PT EDUCATION PROVIDED BY AND THIS RN. PT W/ MINIMAL LIQUID BROWN OUTPUT VIA OSTOMY; SMALL AMOUNT OF MUCOUS OUTPUT VIA RECTUM. 1P SBA TO COMMODE. PT ABLE TO USE URINAL INDEPENDENTLY. JEROME DRAIN IN PLACE, SEROSANGUINEOUS DRAINAGE EMPTIED SEVERAL TIMES THIS SHIFT. NS INFUSING PER EMAR. NO OTHER EVENTS. CALL LIGHT WITHIN REACH, BED IN LOWEST POSITION. WILL REPORT TO ONCOMING NOC RN.
[2023-07-26] VITALS (8 sets, daily range): BP systolic 120–149; BP diastolic 83–108
[2023-07-26 04:17] LABS: BASOPHILS ABSOLUTE AUTO 0.04 K/mm3 (0.00-0.23); BASOPHILS PERCENT AUTO 0 % (0-2); EOSINOPHILS ABSOLUTE AUTO 0.09 K/mm3 (0.00-0.68); EOSINOPHILS PERCENT AUTO 0 % (0-6); Hematocrit 26.3 % (37.0-53.0); Hemoglobin 7.9 g/dL (13.5-17.5); IMMATURE GRAN ABSOLUTE AUTO 0.51 K/mm3 (0.00-0.10); IMMATURE GRAN PERCENT AUTO 2 % (0-1); LYMPHOCYTES ABSOLUTE AUTO 1.01 K/mm3 (0.84-5.20); LYMPHOCYTES PERCENT AUTO 5 % (21-46); MONOCYTES ABSOLUTE AUTO 1.32 K/mm3 (0.16-1.47); MONOCYTES PERCENT AUTO 6 % (4-13); Mean Corpuscular HGB 25.3 pg (26.0-34.0); Mean Corpuscular Volume 84 fL (80-100); Mean Platelet Volume 8.9 fL (9.1-12.4); NEUTROPHILS ABSOLUTE AUTO 19.47 K/mm3 (1.96-9.15); NEUTROPHILS PERCENT AUTO 87 % (41-73); Platelet Count 457 K/mm3 (150-400); RDW Coefficient Variation 22.6 % (11.7-14.2); RDW Standard Deviation 66.1 fL (35.1-46.3); Red Blood Cell Count 3.12 M/mm3 (4.30-5.90); White Blood Cell Count 22.44 K/mm3 (4.00-11.30)
--- NOTE | 2023-07-26 04:39 | NUR ---
SHIFT SUMMARY ASSUMED CARE OF PT AT 1900. PT IS A/OX4. HEART SOUNDS REGULAR. LUNG SOUNDS HAVE CRACKLES AT THE BASES. RA T/O THE NOC. PT C/O SOB WHILE IN PAIN. PT ABD IS VERY FIRM AND DISTENDED, PT FEELS HIS LIKE HIS ABD HAS LOTS OF PRESSURE. PT C/O PAIN T/O THE ABD. BOWEL TONES PRESENT. PT MEDICATED FOR PAIN WITH SOME RELEIF, PT WOULD AWAKE MOANING AND CRYING OUT. OSTOMY DRAINING SEROSANGUENOUS FLUIDS WITH SMALL AMOUNT OF STOOL. JEROME DRAIN STARTED FROM LIGHT RED COLOR TO PALE YELLOW AND CLOUDY. PT WAS ABLE TO GET SOME SLEEP DURING THE NOC.
[2023-07-26 04:52] LABS: Albumin, Blood 1.5 g/dL (3.4-5.0); Albumin/Globulin Ratio 0.3 (0.8-1.8); Bilirubin, Total 0.8 mg/dL (0.1-1.0); Bun/Creatinine Ratio 15.5 (12.0-20.0); Calcium, Blood 7.5 mg/dL (8.5-10.1); Creatinine, Blood 0.97 mg/dL (0.60-1.20); Globulin, Blood 4.7 g/dL (2.2-4.0); Potassium, Blood 4.6 mmol/L (3.5-5.5); Total Protein, Blood 6.2 g/dL (6.4-8.2)
--- NOTE | 2023-07-26 17:28 | NUR ---
END OF SHIFT NOTE PT A&OX4, ANXIOUS AT TIMES. ABLE TO CALL APPROPRIATELY AND MAKE NEEDS KNOWN TO STAFF. HR 100-120'S, NSR W/ PVC'S. HR UP TO 130'S W/ ACTIVITY. SBP 120-140'S, DENIES CHEST PAIN/PRESSURE. SPO2 >95% ON RA, DENIES FEELING SOB. ABDOMINAL DISTENTION STILL NOTED W/ COLOSTOMY DRAINING LIQUID BROWN STOOL AND FLATUS. MD TO BEDSIDE THIS PM, ORDERS RECEIVED FOR NPO W/ EXCEPTION OF WATER/ICE CHIPS. FREQUENT VOIDS IN URINAL, STRICT I&O THIS SHIFT. JEROME DRAIN IN PLACE; DRAINING YELLOW CLOUDY FLUID THIS AM AND MAINLY SEROSANGUINEOUS FLUID THIS PM. PT REPORTS ABDOMINAL PAIN MOD-SEV, MEDICATED PER EMAR. UP TO CHAIR FOR 2-3HRS THIS AFTERNOON. NO OTHER EVENTS. CALL LIGHT WITHIN REACH, BED IN LOWEST POSITION. WILL REPORT TO ONCOMING MODESTA RN.
[2023-07-27] VITALS (8 sets, daily range): BP systolic 132–162; BP diastolic 96–111
--- NOTE | 2023-07-27 03:38 | NUR ---
UPDATE PT HEARD MOANING IN ROOM. THIS RN ENTERS TO ASSESS. PT REPORTS 8/10 PAIN AT HTIS TIME. TREATED WITH DILAUDID PER EMAR. PT REPORTS NOT BEING ABLE TO GET ANY SLEEP DUE TO PAIN.
[2023-07-27 03:58] LABS: BASOPHILS ABSOLUTE AUTO 0.04 K/mm3 (0.00-0.23); BASOPHILS PERCENT AUTO 0 % (0-2); EOSINOPHILS ABSOLUTE AUTO 0.08 K/mm3 (0.00-0.68); EOSINOPHILS PERCENT AUTO 0 % (0-6); Hematocrit 27.5 % (37.0-53.0); Hemoglobin 8.3 g/dL (13.5-17.5); IMMATURE GRAN ABSOLUTE AUTO 0.38 K/mm3 (0.00-0.10); IMMATURE GRAN PERCENT AUTO 2 % (0-1); LYMPHOCYTES ABSOLUTE AUTO 0.97 K/mm3 (0.84-5.20); LYMPHOCYTES PERCENT AUTO 5 % (21-46); MONOCYTES ABSOLUTE AUTO 1.31 K/mm3 (0.16-1.47); MONOCYTES PERCENT AUTO 7 % (4-13); Mean Corpuscular HGB 25.4 pg (26.0-34.0); Mean Corpuscular HGB Conc 30.2 g/dL (31.5-36.5); Mean Corpuscular Volume 84 fL (80-100); Mean Platelet Volume 8.8 fL (9.1-12.4); NEUTROPHILS ABSOLUTE AUTO 17.32 K/mm3 (1.96-9.15); NEUTROPHILS PERCENT AUTO 86 % (41-73); NRBC ABSOLUTE 0.02 K/mm3 (0.00-0.02); NRBC Auto 0.1 /100 WBC (0.0-0.2); Platelet Count 463 K/mm3 (150-400); RDW Coefficient Variation 23.4 % (11.7-14.2); RDW Standard Deviation 67.1 fL (35.1-46.3); Red Blood Cell Count 3.27 M/mm3 (4.30-5.90)
--- NOTE | 2023-07-27 04:48 | NUR ---
SHIFT SUMMARY PT A/OX4, ANXIOUS THROUGHOUT SHIFT. PT EXPRESSED SEVERE ABD PAIN WITH LITTLE RELIEF FROM PAIN MEDS. PT MOANED FOR MOST OF SHIFT, TREATED WITH TORADOL PER ORDER AND DILAUDID PER ORDER. VSS THROUGHOUT SHIFT WITH 02 SATS IN THE 90'S ON RA. NO REPORT OF CHEST PAIN/PRESSURE THROUGHOUT SHIFT. NO REPORT OF SOB/DYSPNEA THROUGHOUT SHIFT. OSTOMY CHANGED DUE TO LEAKING. JEROME DRAIN IN PLACE DRAINING SEROSANGUINEOUS FLUIDS WITH SOME CLOTS, FREQUENT OUTPUT. OSTOMY NOT MUCH OUTPUT. PT USING URINAL WHILE IN BED AND AT BEDSIDE. PT INDEPENDENT IN BED.
--- NOTE | 2023-07-27 10:45 | NUR ---
The pt was saying that he was having extreme abdominal pain from distention this morning at time of bedside report. He was alert, oriented and moaninng and rubbing his abdomen. Vital signs taken and he was given 1 mg IV dilaudid and said that he felt relief right away. He was able to take oral medications as that time, and had no nausea. Noted that his blood pressure came down after receiving the pain medications, as did his respiratory rate and his spO2 also dropped below 90%. He was placed on 2 l/min of Oxygen and his spo2 improved to 99%, and respirations 12/min. JEROME drain has been draining at least 100 cc/hour of serous fluid, at times with red blood clots in it. The ostomy is noted on the left abodmen to have a scant amount of brown liquid in it; the SAMPLE CARD MAKER reports that the pt had twice passed some mucousy stool from it this morning, and the pt confirms this. He is voiding into the urinal at the bedside.
--- NOTE | 2023-07-27 11:03 | NUR ---
Bedside shift report given to TONY Billingsley. The pt is awake and appears again to be having some pain.
[2023-07-27 11:19] LABS: Bun/Creatinine Ratio 13.7 (12.0-20.0); Calcium, Blood 8.3 mg/dL (8.5-10.1); Creatinine, Blood 0.95 mg/dL (0.60-1.20); Magnesium, Blood 1.7 mg/dL (1.6-2.4); Potassium, Blood 3.8 mmol/L (3.5-5.5)
--- NOTE | 2023-07-27 15:08 | NUR ---
Assumed care of patient at approx 1030, pt alert, oriented X4; anxious and painful upon assessment, medicated with dilaudid. Pt denies chest pain, sob, nausea, dizziness and numb/tingling. Tele sinus tach 100-120, bp elevated, noted. Spo2 >90% on ra while awake, pt desaturates to 80's whille sleeping, placed 2l o2 >90%. Abd distended, firm and tender on palp, hypoactive btx4 quad. R JEROME draining serrous/serosanginous fluids t/o shift. L sided colostomy, flatulence noted t/o shift, small amount of brown drainaged, tinged red/pink noted. Edema noted ble below knees 3+, above knees 1+. Other vss. Will continue to monitor. Dr Bloom at bedside this afternoon, plans for hold po intake and check in again tomorrow.
[2023-07-28 03:53] LABS: BASOPHILS ABSOLUTE AUTO 0.04 K/mm3 (0.00-0.23); BASOPHILS PERCENT AUTO 0 % (0-2); EOSINOPHILS ABSOLUTE AUTO 0.05 K/mm3 (0.00-0.68); EOSINOPHILS PERCENT AUTO 0 % (0-6); Hemoglobin 9.1 g/dL (13.5-17.5); IMMATURE GRAN ABSOLUTE AUTO 0.43 K/mm3 (0.00-0.10); IMMATURE GRAN PERCENT AUTO 2 % (0-1); LYMPHOCYTES ABSOLUTE AUTO 0.99 K/mm3 (0.84-5.20); LYMPHOCYTES PERCENT AUTO 5 % (21-46); MONOCYTES ABSOLUTE AUTO 1.25 K/mm3 (0.16-1.47); MONOCYTES PERCENT AUTO 6 % (4-13); Mean Corpuscular HGB 25.5 pg (26.0-34.0); Mean Corpuscular HGB Conc 30.3 g/dL (31.5-36.5); Mean Corpuscular Volume 84 fL (80-100); Mean Platelet Volume 8.9 fL (9.1-12.4); NEUTROPHILS ABSOLUTE AUTO 17.52 K/mm3 (1.96-9.15); NEUTROPHILS PERCENT AUTO 86 % (41-73); Platelet Count 555 K/mm3 (150-400); RDW Coefficient Variation 24.2 % (11.7-14.2); RDW Standard Deviation 69.7 fL (35.1-46.3); Red Blood Cell Count 3.57 M/mm3 (4.30-5.90); White Blood Cell Count 20.28 K/mm3 (4.00-11.30)
[2023-07-28 04:10] LABS: Bun/Creatinine Ratio 13.9 (12.0-20.0); Calcium, Blood 8.4 mg/dL (8.5-10.1); Creatinine, Blood 0.94 mg/dL (0.60-1.20); Potassium, Blood 3.7 mmol/L (3.5-5.5)
--- NOTE | 2023-07-28 04:48 | NUR ---
SHIFT SUMMARY PT A/OX 4 AND COOPERATIVE OF CARE. PT MOANED PERIODICALLY THROUGHOUT SHIFT DUE TO PAIN, TREATED PER EMAR. PT BP'S ELEVATED THROUGHOUT SHIFT, SEE CHART. PT ST I THE 100-110'S WITH BRIEF PERIODS OF 140'S. NO REPORT OF CHEST PAIN/PRESSURE. PT REPORTS SOB DUE TO PAIN AT TIMES. PT OSTOMY STILL WITH LITTLE OUTPUT. JEROME DRAIN DRAINING LIGHT COLRED SEROSANGUINEOUS FLUIDS WITH SOME BLOOD CLOTS PRESENT. PT INDEPENDENT IN BED. PT FREQUENTLY HAVING EPISODES OF HICCUPS LEADING TO INCREASED ABD PAIN. PT USING USRINAL WHILE IN BED. PT ABLE TO HAVE SOME BRIEF PERIODS OF SLEEP AFTER RECIEVING PAIN MEDS.
[2023-07-28 05:04] VITALS: BP 161/108
[2023-07-28 08:00] VITALS: BP 144/113
--- NOTE | 2023-07-28 09:37 | NUR ---
ASSUMED CARE OF PT AT 0700 THIS AM. PT RESTING WITH EYES CLOSED, RESPIRATIONS EVEN AND UNLABORED DURING BEDSIDE SHIFT REPORT. PT MEDICATED FOR ABD PAIN PER EMAR. DENIES NAUSEA DURING ASSESSMENT THIS AM. APROX 0925 PT BECAME NAUSEATED AND VOMITED 400MLs DARK GREEN LIQUID. PT GIVEN ZOFRAN PER EMAR AND STATES HIS NAUSEA IS GONE. EDUCATED PT ABOUT ILEUS PROBABLE CAUSE FOR VOMITING. BOWEL TONES ABSENT DURING ASSESSMENT THIS AM, PT'S ABD SEVERELY DISTENDED, FIRM AND TENDER TO TOUCH. PT REPORTS ABD PAIN IS CONSTANTLY PRESENT. OSTOMY CONTINUES TO HAVE VERY LITTLE OUTPUT/FLATUS. AFEBRILE. HR 110s, ST WITH FREQUENT PVCs AND BIGEM. ELEVATED BPs NOTED. PT IS NOT MOTIVATED TO MOVE OR GET OUT OF BED, DESPITE ENCOURAGEMENT. SPOKE TO PTs FAMILY THIS AM, UPDATE GIVEN. WILL CONITNUE TO MONITOR AND DISCUSS CONCERNS WITH MD ON ROUNDS THIS AM.
[2023-07-28 12:00] VITALS: BP 150/110
--- NOTE | 2023-07-28 14:45 | NUR ---
DR Kelly BEVERLY NOTIFIED BY THIS RN OF PT'S HR AND BP TRENDS, WITH HR CONSISTANTLY ABOUVE 110 AND DIASOLIC BPs>90. STATES THAT MEDICAL TEAM IS AWARE, STATES HR/BP ARE PROBABLY RELATED TO PT'S PAIN. NO NEW ORDERS AT THIS TIME. WILL CONITNUE TO MONITOR.
--- NOTE | 2023-07-28 17:24 | NUR ---
PT HAS IMPROVED THIS AFTERNOON AND EVENING. THIS RN EDUCATED PT AGAIN ABOUT THE IMPORTANCE OF MOVEMENT AND AMBULATION TO RESOLVE HIS ILEUS. PT IS MEDICATED WITH NORCO FOR PAIN, NO MORE DOSES OF DILAUDID GIVEN THIS SHIFT. PT IS EDUCATED ABOUT THE ROLE OPIATES PLAY IN CONTINUING HIS ILEUS, LENGTHENING HIS HOSPITAL STAY AND RISK OF HIS CONDITION DETERIORATING. PT VERBALIZES UNDERSTANDING AND AGREES TO GET OOB TO CHAIR. PT DID WELL TRANSFERING AND STAYED UP IN CHAIR FOR APROX 4 HRS. PT ABLE TO AMBULATE WITH RN ASSIST TO REST ROOM AND BACK TO CHAIR. MEDICATED WITH NORCO AGAIN APROX 1615, AND AFTER A SHORT TIME, PT WAS READY TO AMBULATE IN HALLWAY WITH RN. PT ABLE TO WALK FROM PCU3 TO ICU DOORS AND BACK. PT HAS PASSED FLATUS THROUGH HIS OSTOMY X2 TODAY AND HAS HAD NO FURTHER EPISODES OF N/V. TOLERATING ICE CHIPS PO. PTs FAMILY VISITED TODAY, EDUCATED AND UPDATED ON PT CONDITION. PT IS ABLE TO USE CALL LIGHT FOR NEEDS, CALL LIGHT IN REACH. SEE DOCUMENTED VS AND ASSESSMENT. WILL CONTINUE TO MONITOR AND GIVE REPORT TO NOC SHIFT RN.
[2023-07-28 19:47] VITALS: BP 141/97
[2023-07-28 23:46] VITALS: BP 130/100
[2023-07-29 03:41] LABS: BASOPHILS ABSOLUTE AUTO 0.02 K/mm3 (0.00-0.23); BASOPHILS PERCENT AUTO 0 % (0-2); EOSINOPHILS ABSOLUTE AUTO 0.03 K/mm3 (0.00-0.68); EOSINOPHILS PERCENT AUTO 0 % (0-6); Hematocrit 28.6 % (37.0-53.0); Hemoglobin 8.6 g/dL (13.5-17.5); IMMATURE GRAN ABSOLUTE AUTO 0.35 K/mm3 (0.00-0.10); IMMATURE GRAN PERCENT AUTO 2 % (0-1); LYMPHOCYTES ABSOLUTE AUTO 1.15 K/mm3 (0.84-5.20); LYMPHOCYTES PERCENT AUTO 7 % (21-46); MONOCYTES ABSOLUTE AUTO 1.13 K/mm3 (0.16-1.47); MONOCYTES PERCENT AUTO 6 % (4-13); Mean Corpuscular HGB 25.3 pg (26.0-34.0); Mean Corpuscular HGB Conc 30.1 g/dL (31.5-36.5); Mean Corpuscular Volume 84 fL (80-100); Mean Platelet Volume 9.1 fL (9.1-12.4); NEUTROPHILS ABSOLUTE AUTO 14.94 K/mm3 (1.96-9.15); NEUTROPHILS PERCENT AUTO 85 % (41-73); NRBC ABSOLUTE 0.03 K/mm3 (0.00-0.02); NRBC Auto 0.2 /100 WBC (0.0-0.2); Platelet Count 555 K/mm3 (150-400); RDW Coefficient Variation 24.3 % (11.7-14.2); RDW Standard Deviation 73.2 fL (35.1-46.3); White Blood Cell Count 17.62 K/mm3 (4.00-11.30)
[2023-07-29 04:07] VITALS: BP 131/98
--- NOTE | 2023-07-29 04:43 | NUR ---
SHIFT SUMMARY PT A/OX4 AND COOPERATIVE OF CARE. PT MENTATION BETTER TONIGHT AND MORE TALKATIVE AT BEGINNING OF SHIFT. PT HR MAINTAINED 100' THROUGHOUT SHIFT. OTHER VSS THROUGHOUT SHIFT WITH O2 SATS IN THE 90'S ON RA. NO REPORT OF CHEST PAIN/PRESSURE THROUGOUT SHIFT. NO REPORT OF SOB THROUGHOUT SHIFT. PT PAIN BETTER TONIGHT, RECIEVED ONLY ONE DOSE IF DILAUDID, SEE EMAR. PT UP TO RECLINER FOR BRIEF PERIODS, CONTINUEING TO ENCOURAGE OUT OF BED. PT OSTOMY STILL HAIVE VERY LITTLE LIQUID OUTPUT BUT FLATUS NOTED MULTIPLE TIMES DURING SHIFT. JEROME DRAIN CONTINUEING TO DRAIN LIGHT YELLOW/PINK FLUIDS, AMOUNT DECREASED THIS SHIFT, SEE I/O'S. PT HAD BRIEF PERIODS OF SLEEP DURING NIGHT.
[2023-07-29 05:54] LABS: BAND PERCENT MAN 1 % (0-8); BASOPHILS PERCENT MAN 0 % (0-2); EOSINOPHILS PERCENT MAN 0 % (0-6); LYMPHOCYTES ABSOLUTE MAN 1.23 K/mm3 (0.84-5.20); LYMPHOCYTES PERCENT MAN 7 % (21-46); MONOCYTES PERCENT MAN 4 % (4-13); NEUTROPHILS ABSOLUTE MAN 15.68 K/mm3 (1.96-9.15); SEG NEUTROPHILS PERCENT MAN 88 % (41-73); TOTAL CELLS COUNTED 100
--- NOTE | 2023-07-29 08:00 | NUR ---
Initial assessment: Patient is resting in bed talking with resident. He is alert and oriented x4. He reports minimal pain that he rates at a 3/10 in his abd, he states he feels "really good this morning." HRR, he is SR-ST. LS Dim in the bases, pt encouraged to TCBD. BT hypoactive. He has a JEROME drain to his RLQ it is secure with sutures draining clear yellow/orange fluid. He has a small midline incision to his lower abd with shellie open to air, CDI. He has a new colostomy with pink stoma, there is a scant amount of red/brown clear drainiage he is passing flatus through the ostomy. PPP. He denies other needs at this time. Call light in reach, will continue to monitor.
[2023-07-29 08:03] VITALS: BP 141/98
--- NOTE | 2023-07-29 11:30 | NUR ---
UPdate: Patient was able to walk in the hallway from his room to the ICU hallway, approx [address] Bloom was to the room to see the patient. He is allowing the patient to start advancing his diet. He will start with sips of full liquids. The patient is resting visiting with his family, VSS.
[2023-07-29 12:15] VITALS: BP 136/86
--- NOTE | 2023-07-29 12:49 | NUR ---
NURSING PCU TRANSFER SUMMARY: Seen by PMD and surgeon, new d/o received. Surgical floor bed assignment received. Telephone report given to accepting RN by SN, questions answered. Will xfer pt via w/c, monitor until xfer is completed.
--- NOTE | 2023-07-29 13:15 | NUR ---
PT ARRIVED FROM PCU, A&OX4, VOIDED/URINAL IN BRP/PASSING FLATUS, AMB SBA/UP IN ROOM, DENIES PAIN AT THIS TIME, MOUNIKA PO-ADV TO FLD, FAMILY AT BEDSIDE.
[2023-07-29 13:27] VITALS: BP 131/90
--- NOTE | 2023-07-29 14:02 | NUR ---
Spiritual care visit conducted. Patient is lying in bed and alert. He tells me about the surgery that he had and the challenges coming up. We talk about cancer, about God, about and dying and about hope and inspiration. His family support is solid his seamus is intact and his drive to overcome is stated. He admits to the fear and confusion. I normalize his experience and provide therapeutic listening and prayer. I will continue to remain available to patient and family.
--- NOTE | 2023-07-29 16:32 | NUR ---
SHIFT SUMMARY PT A&OX4, VSS/RA/TELE ST @ 114 BPM, MOUNIKA FLD, VOIDING/URINAL, AMB SBA BRP/UP IN ROOM, PAIN MANAGED. POD5 LAP COLOSTOMY, LIQ SS 30 MLS OUT. REVIEWED OSTOMY CARE. WILL REPORT TO ONCOMING NOC RN.
--- NOTE | 2023-07-29 18:40 | NUR ---
TELEPHONE CALL TO DR BHATT R/T TELE RELAY OF SVT 174 BPM FOR 6 SECS, PT NOW BACK AT ST 114 BPM. NO ORDERS RECEIVED.
[2023-07-29 19:10] VITALS: BP 139/97
--- NOTE | 2023-07-29 20:12 | NUR ---
TELE AT APPROX 1999, TELE CALLED THIS RN TO REPORT PT HR GOING UP TO THE 170S BUT NOT SUSTAINING AND CURRENTLY 120S. THIS RN WENT TO CHECK ON PT AND PT WAS IN THE RESTROOM. THIS RN OFFERED PT HELP HE HAD URINATED ON HIS PANTS. PT DENIED ANY SYMPTOMS SUCH CHEST PAIN, SOB, DIZZYNESS. THIS RN CLEANED PT UP, GOT HIM NEW PANTS, AND ASSISTED PT BACK TO BED. INSTRUCTED PT TO USE CALL LIGHT WHEN NEEDING OOB TO PREVENT FALLS. PT VERBALIZED AN UNDERSTANDING. CALL LIGHT WITHIN REACH. REPORTED EVENT TO KACY JIMENEZ.
[2023-07-30 04:41] VITALS: BP 144/90
--- NOTE | 2023-07-30 04:54 | NUR ---
SHIFT SUMMARY NOC. PT ON TELEMETRY AND HAD AN EVENT OF HEART RATE IN THE 170S. PLEASE SEE NOTE FROM ROSAURA JIMENEZ FOR MORE DETAILS. PT A/O X4, AND UTILIZES CALL LIGHT APPROPRIATLY. PT AMBULATES TO THE BR WITH STAND BY ASSIST, PT VOIDING URINE FREQUENTLY. PT MEDICATED FOR ABDOMINAL PAIN WITH RELIEF X1. PT OSTOMY IS PRODUCING SOFT BROWN OUTPUT. PT HAD A SMALL BM PER RECTUM. PT JEROME DRAIN PRODUCED 40 ML OF PINK SEROUS OUTPUT. PT RESTED WITH EYES CLOSED AND CALL LIGHT IN REACH.
[2023-07-30 07:16] VITALS: BP 132/88
[2023-07-30] MEDS ORDERED: AMOCLA875 PO (14:11)
[2023-07-30] MEDS ORDERED: MIRALAX17 GM PO (14:11)
--- NOTE | 2023-07-30 15:30 | NUR ---
DISCHARGE SUMMARY PT A&OX4, VSS/RA, MOUNI[place] PO, VOIDING WELL, SHOWERED TODAY/INDEPENDENT, OSTOMY APPLIANCE CHANGED TODAY/EDU PATIENT(SUPPLIES SENT HOME), JEROME DRAIN EDU/RECORD PROVIDED FOR PT TO COMPLETE AND TAKE TO SURGEON FU IN 2 WKS, PAIN MANAGEMENT (SCRIPT SENT HOME WITH PT), PWRGLIDE AND IV DC'D. DC INS PROVIDED. PT AND DAUGHTER REP UNDERSTANDING THOSE INSTRUCTIONS; AUGMENTIN AT [facility]. LEFT FLOOR VIA WC WITH ALL PERSONAL POSSESSIONS TO GO HOME WITH DAUGHTER.
== END 2023-07-30 15:40 | disposition home or self-care (01) | DRG 853 ==
LOC: ER 18:35 → PCU 18:36 → SURS 07-29 12:58
PROVIDERS: Emergency Medicine; Family Medicine; Family Medicine Adult Medicine; Hospitalist; Student in an Organized Health Care Education/Training Program; Surgery; ADMIT Internal Medicine
PROC: 30233N1 Transfusion of Nonautologous Red Blood Cells into Peripheral Vein, Percutaneous Approach (ICD-10-PCS; 2023-07-23)
PROC: 0FB03ZX Excision of Liver, Percutaneous Approach, Diagnostic (ICD-10-PCS; 2023-07-24)
PROC: 0D1M4Z4 Bypass Descending Colon to Cutaneous, Percutaneous Endoscopic Approach (ICD-10-PCS; principal; 2023-07-24 11:30)
DX: A41.9 Sepsis, unspecified organism (principal); K63.1 Perforation of intestine (nontraumatic); K91.89 Other postprocedural complications and disorders of digestive system; K56.7 Ileus, unspecified; C19 Malignant neoplasm of rectosigmoid junction; C78.7 Secondary malignant neoplasm of liver and intrahepatic bile duct; C77.2 Secondary and unspecified malignant neoplasm of intra-abdominal lymph nodes; K63.0 Abscess of intestine; D63.0 Anemia in neoplastic disease; D50.9 Iron deficiency anemia, unspecified; R60.1 Generalized edema; F41.9 Anxiety disorder, unspecified; F17.210 Nicotine dependence, cigarettes, uncomplicated; J44.9 Chronic obstructive pulmonary disease, unspecified; E87.70 Fluid overload, unspecified; F19.90 Other psychoactive substance use, unspecified, uncomplicated; E88.09 Other disorders of plasma-protein metabolism, not elsewhere classified; I10 Essential (primary) hypertension; Z95.828 Presence of other vascular implants and grafts
CPT/HCPCS: 36415; 71045; 74177; 80048; 80053; 82272; 82728; 83540; 83550; 83605; 83690; 83735; 83880; 85014; 85018; 85025; 85027; 85045; 86850; 86900; 86901; 86923; 87040; 87507; 88307; 88341; 88342; 93005; 93010; 94760; 96361; 96365; 96365-59; 96372; 96374; 96375; 96376; 97110; 97161; 97530; 99285-25; A9270; G0378; J1170; J1650; J1885; J1940; J2405; J2543; J3010; J7030; J7050; J7120; P9016; Q9967

== ENCOUNTER → 2023-08-06 | Outpatient (CLI) | payer OTHER ==
[~2023-08-06] MED LIST changes: +AMOCLA875 PO; +LOPE2C PO; +MIRALAX17 GM PO
[2023-08-06 16:29] LABS: Bun/Creatinine Ratio 24.2 (12.0-20.0); Calcium, Blood 8.5 mg/dL (8.5-10.1); Creatinine, Blood 0.62 mg/dL (0.60-1.20); Potassium, Blood 4.4 mmol/L (3.5-5.5)
== END | disposition home or self-care (01) ==
LOC: LAB 11:25 → LAB SHORT 11:25
PROVIDERS: Family Medicine
DX: M79.89 Other specified soft tissue disorders (principal)
CPT/HCPCS: 80048

== ENCOUNTER → 2023-09-03 | Outpatient (CLI) | payer OTHER ==
[2023-09-04 01:13] LABS: Albumin, Blood 2.8 g/dL (3.4-5.0); Albumin/Globulin Ratio 0.6 (0.8-1.8); Bilirubin, Total 0.2 mg/dL (0.1-1.0); Calcium, Blood 9.1 mg/dL (8.5-10.1); Creatinine, Blood 0.73 mg/dL (0.60-1.20); Globulin, Blood 4.7 g/dL (2.2-4.0); Potassium, Blood 4.3 mmol/L (3.5-5.5); Total Protein, Blood 7.5 g/dL (6.4-8.2)
== END | disposition home or self-care (01) ==
LOC: LAB SHORT 15:36 → LAB 15:36
PROVIDERS: Family Medicine
DX: E87.6 Hypokalemia (principal)
CPT/HCPCS: 80053

== ENCOUNTER → 2023-10-22 | Outpatient (CLI) | payer OTHER ==
[2023-10-24 07:13] LABS: CALCIUM, SERUM 9.3 mg/dL (8.7-10.2); CREATININE, SERUM 0.86 mg/dL (0.76-1.27); POTASSIUM, SERUM 3.8 mmol/L (3.5-5.2)
== END | disposition home or self-care (01) ==
LOC: LAB 17:12 → LAB SHORT 17:12
PROVIDERS: Family Medicine
DX: E87.6 Hypokalemia (principal)
CPT/HCPCS: 80048

== ENCOUNTER 2024-02-12 10:40 | Emergency (ER) | payer OTHER ==
[~2024-02-12] VITALS: Ht 182.9 cm; Wt 107.5 kg
[2024-02-12] MEDS ORDERED: NS 1,000 ML IV SCH (12:05)
[2024-02-12] MEDS ORDERED: Ondansetron HCl 2 MG / ML 2ML Vial IV ONE (12:05)
[2024-02-12 12:48] LABS: Bun/Creatinine Ratio 11.8 (12.0-20.0); Calcium, Blood 8.6 mg/dL (8.5-10.1); Creatinine, Blood 1.02 mg/dL (0.60-1.20); Potassium, Blood 3.2 mmol/L (3.5-5.5)
[2024-02-12 12:49] LABS: BASOPHILS ABSOLUTE AUTO 0.05 K/mm3 (0.00-0.23); BASOPHILS PERCENT AUTO 0 % (0-2); EOSINOPHILS ABSOLUTE AUTO 0.01 K/mm3 (0.00-0.68); EOSINOPHILS PERCENT AUTO 0 % (0-6); Hematocrit 32.3 % (37.0-53.0); Hemoglobin 10.5 g/dL (13.5-17.5); IMMATURE GRAN ABSOLUTE AUTO 0.43 K/mm3 (0.00-0.10); IMMATURE GRAN PERCENT AUTO 2 % (0-1); LYMPHOCYTES ABSOLUTE AUTO 1.05 K/mm3 (0.84-5.20); LYMPHOCYTES PERCENT AUTO 4 % (21-46); MONOCYTES ABSOLUTE AUTO 3.62 K/mm3 (0.16-1.47); MONOCYTES PERCENT AUTO 13 % (4-13); Mean Corpuscular HGB 29.4 pg (26.0-34.0); Mean Corpuscular HGB Conc 32.5 g/dL (31.5-36.5); Mean Corpuscular Volume 91 fL (80-100); Mean Platelet Volume 10.6 fL (9.1-12.4); NEUTROPHILS ABSOLUTE AUTO 23.52 K/mm3 (1.96-9.15); NEUTROPHILS PERCENT AUTO 82 % (41-73); Platelet Count 240 K/mm3 (150-400); Red Blood Cell Count 3.57 M/mm3 (4.30-5.90); White Blood Cell Count 28.68 K/mm3 (4.00-11.30)
[2024-02-12 13:10] LABS: BASOPHILS PERCENT MAN 0 % (0-2); EOSINOPHILS PERCENT MAN 0 % (0-6); LYMPHOCYTES ABSOLUTE MAN 0.57 K/mm3 (0.84-5.20); LYMPHOCYTES PERCENT MAN 2 % (21-46); MONOCYTES ABSOLUTE MAN 2.58 K/mm3 (0.16-1.47); MONOCYTES PERCENT MAN 9 % (4-13); NEUTROPHILS ABSOLUTE MAN 25.52 K/mm3 (1.96-9.15); SEG NEUTROPHILS PERCENT MAN 89 % (41-73); TOTAL CELLS COUNTED 100
[2024-02-12] MEDS ORDERED: Vancomycin HCL 2,000 MG in NS 270 ML IV ONE (13:20)
[2024-02-12] MEDS ORDERED: Piperacillin/Tazobactam Sod 3.375 GM in NS 100 ML IV ONE (13:20)
[2024-02-12] MEDS ORDERED: FUROSEMIDE20 MG PO (13:52)
[2024-02-12] MEDS ORDERED: SPIRONOLACTONE50 MG PO (13:52)
[2024-02-12] MEDS ORDERED: metoprolol succinate (13:52)
[2024-02-12] MEDS ORDERED: POTA20LUD PO (13:53)
[2024-02-12] MEDS ORDERED: Potassium Chl 20MEQ/Water100ML 100 ML IV ONE (14:55)
[2024-02-12 15:00] VITALS: BP 120/74
== END 2024-02-12 17:49 | disposition home or self-care (01) ==
LOC: ER 10:40
PROVIDERS: Student in an Organized Health Care Education/Training Program
DX: T80.212A Local infection due to central venous catheter, initial encounter (principal); D72.829 Elevated white blood cell count, unspecified; R00.0 Tachycardia, unspecified; E87.1 Hypo-osmolality and hyponatremia; E87.6 Hypokalemia; Z79.899 Other long term (current) drug therapy
CPT/HCPCS: 10120; 36415; 80048; 83605; 85025; 93005; 93010; 96361-59; 96365-59; 96366-59; 96367-59; 96368; 96375-59; 99284-25; J2405; J2543; J3370; J3480; J7030; J7050